=== PATIENT | female | born 1975 | race Caucasian/White ===

== ENCOUNTER 2018-01-19 19:42 | Inpatient (IN) | payer OTHER ==
[~2018-01-19] VITALS: Ht 177.8 cm; Wt 142.7 kg
[~2018-01-19 19:42] MED LIST: AUGMENTIN875 MG PO; BENADRYL25 MG PO; COMPAZINE10 MG PO; FIORICET,ESG1 TABLET PO; NAPROXEN500 MG PO; PEN-VEE K,VEET500 MG PO; PERCOCET 5/31 TABLET PO; VALIUM2 MG PO
[2018-01-19 20:52] LABS: HEMATOCRIT 34.8 % (36.0-46.0); HEMOGLOBIN 11.8 G/DL (11.9-15.5); MCH 31.6 PG (29.0-34.0); MCHC 33.9 G/DL (30.0-36.0); MCV 93.3 FL (83-99); PLATELET COUNT 226 K/uL (156-360); RBC DIS.WIDTH-CV 13.3 % (11.8-14.6); RBC DIS.WIDTH-SD 45.6 % (39-53); RED BLOOD COUNT 3.73 M/uL (3.80-5.20); WHITE BLOOD COUNT 15.2 K/uL (4.1-10.2)
[2018-01-19 21:00] LABS: ALBUMIN 3.3 g/dL (3.2-4.8); CHLORIDE 106 mEq/L (99-109); POTASSIUM 3.5 mEq/L (3.7-5.4); SODIUM 134 mEq/L (136-147)
[2018-01-19 21:03] LABS: GLUCOSE 150 mg/dL (70-99); TOTAL PROTEIN 6.6 g/dL (6.4-8.3)
[2018-01-19 21:04] LABS: TOTAL BILIRUBIN 1.3 mg/dL (0.0-1.0)
[2018-01-19 21:06] LABS: ALKALINE PHOSPHATASE 77 IU/L (3-129); GFR ESTIMATE (CALCULATED) > 59 mL/min/
[2018-01-19 21:07] LABS: UREA NITROGEN (BUN) 17 mg/dL (9-23)
[2018-01-19 21:08] LABS: AST (GOT) 10 IU/L (2-34)
[2018-01-19 21:09] LABS: ALT (GPT) 10 IU/L (3-49)
[2018-01-19] MEDS ORDERED: ONCE DAILY1 EACH PO (23:15)
[2018-01-19] MEDS ORDERED: AMOXICILLIN875 MG PO (23:16)
[2018-01-19] MEDS ORDERED: IRON18 MG PO (23:17)
[2018-01-19] MEDS ORDERED: CINNAMON500 MG PO (23:18)
[2018-01-19] MEDS ORDERED: VITAMIN E600 UNIT PO (23:18)
[2018-01-19] MEDS ORDERED: VITAMIN D2000 UNI1 PO (23:18)
[2018-01-19] MEDS ORDERED: VITAMIN B122500 MCG PO (23:19)
[2018-01-19] MEDS ORDERED: ASCORBIC ACID500 M3 PO (23:19)
[2018-01-19] MEDS ORDERED: CALCIUM 600 +1 EAC1 PO (23:19)
[2018-01-19] MEDS ORDERED: BIOTIN1000 MICRO PO (23:20)
[2018-01-19] MEDS ORDERED: CRANBERRY CONC500 MG PO (23:20)
[2018-01-19] MEDS ORDERED: PLAIN NIACIN500 MG PO (23:21)
[2018-01-20 03:58] VITALS: BP 115/68
[2018-01-20 08:05] VITALS: BP 111/65
[2018-01-20 09:33] LABS: CHLORIDE 107 MEQ/L (99-109); CREATININE 0.9 MG/DL (0.6-1.3); GFR ESTIMATE (CALCULATED) > 59 mL/min/; GLUCOSE 131 mg/dL (70-99); POTASSIUM 3.5 MEQ/L (3.7-5.4); SODIUM 137 MEQ/L (136-147); UREA NITROGEN (BUN) 14 mg/dL (9-23)
[2018-01-20 10:05] LABS: HEMOGLOBIN 11.8 G/DL (11.9-15.5); MCH 31.7 PG (29.0-34.0); MCHC 33.7 G/DL (30.0-36.0); MCV 94.1 FL (83-99); PLATELET COUNT 241 K/uL (156-360); RBC DIS.WIDTH-CV 13.5 % (11.8-14.6); RBC DIS.WIDTH-SD 46.5 % (39-53); RED BLOOD COUNT 3.72 M/uL (3.80-5.20); WHITE BLOOD COUNT 11.3 K/uL (4.1-10.2)
[2018-01-20 12:21] LABS: HEPATITIS B SURFACE ANTIGEN Nonreactive; HEPATITIS C ANTIBODY Nonreactive
[2018-01-20 12:22] LABS: ANTI-HEPATITIS A VIRUS (IGM) Nonreactive
[2018-01-20 12:23] LABS: ANTI-HEPATITIS B CORE (IGM) Nonreactive
[2018-01-20 13:19] VITALS: BP 95/62
[2018-01-20 13:19] LABS: APPEARANCE CLEAR/COLORLESS; CSF TUBE NUMBER TUBE #4; RED CELL COUNT 28 /MM^3 (0-1); WHITE CELL COUNT 0 /MM^3 (0-5)
[2018-01-20 13:54] LABS: CSF PROTEIN 49 mg/dL (15-45)
[2018-01-20 13:59] LABS: GLUCOSE, CSF 65 mg/dL (40-80)
[2018-01-20 14:37] LABS: CSF EOSINOPHILS 0 % (0-25); MONONUCLEAR WBC'S 96 % (50-90); POLYNUCLEAR WBC'S 4 % (0-3)
[2018-01-20 14:38] LABS: APPEARANCE (RECHECK) CLEAR/COLORLESS; CSF TUBE NUMBER (RECHECK) TUBE #1
[2018-01-20 14:39] LABS: RED CELL COUNT (RECHECK) 1225 /MM^3 (0-1)
[2018-01-20 16:30] VITALS: BP 94/58
[2018-01-20 20:01] VITALS: BP 113/68
[2018-01-20 20:59] LABS: APPEARANCE CLOUDY ((CLEAR)); BILIRUBIN NEGATIVE; BLOOD NEGATIVE; COLOR YELLOW ((YELLOW)); GLUCOSE (STRIP) NEGATIVE; KETONES NEGATIVE; LEUKOCYTES NEGATIVE; NITRITE NEGATIVE; PROTEIN (STRIP) 100; SPECIFIC GRAVITY 1.026 (1.000-1.030)
[2018-01-20 21:06] LABS: BACTERIA NONE SEEN /HPF; EPITHELIAL CELLS 2+ /HPF; MUCUS TRACE /LPF; RED BLOOD CELLS 0-5 /HPF (0-5); UCUL ADDED? YES
[2018-01-20 23:34] VITALS: BP 112/62
[2018-01-21 03:38] VITALS: BP 114/63
[2018-01-21 06:50] LABS: HEMATOCRIT 32.4 % (36.0-46.0); HEMOGLOBIN 10.4 G/DL (11.9-15.5); MCH 30.4 PG (29.0-34.0); MCHC 32.1 G/DL (30.0-36.0); MCV 94.7 FL (83-99); PLATELET COUNT 256 K/uL (156-360); RBC DIS.WIDTH-CV 13.5 % (11.8-14.6); RBC DIS.WIDTH-SD 47.4 % (39-53); RED BLOOD COUNT 3.42 M/uL (3.80-5.20); WHITE BLOOD COUNT 9.8 K/uL (4.1-10.2)
[2018-01-21 07:07] LABS: CHLORIDE 109 MEQ/L (99-109); CREATININE 0.9 MG/DL (0.6-1.3); GFR ESTIMATE (CALCULATED) > 59 mL/min/; POTASSIUM 3.8 MEQ/L (3.7-5.4); SODIUM 136 MEQ/L (136-147); UREA NITROGEN (BUN) 16 mg/dL (9-23)
[2018-01-21 07:09] LABS: GLUCOSE 88 mg/dL (70-99)
[2018-01-21 07:55] VITALS: BP 117/67
[2018-01-21 11:15] VITALS: BP 116/67
[2018-01-21 16:14] VITALS: BP 113/69
[2018-01-21 23:58] VITALS: BP 115/67
[2018-01-22 04:00] VITALS: BP 125/78
[2018-01-22 07:25] VITALS: BP 120/74
[2018-01-22 15:55] VITALS: BP 101/61
[2018-01-22 19:29] VITALS: BP 114/71
[2018-01-23 00:13] VITALS: BP 104/60
[2018-01-23 07:26] VITALS: BP 96/54
[2018-01-23 09:29] LABS: LYME DISEASE SEROLOGY SCREEN NEGATIVE (NEGATIVE)
== END 2018-01-23 11:06 | disposition home or self-care (01) | DRG 103 ==
LOC: EME 19:42 → 2EAST 01-20 01:55 → EDOF 01-20 01:55 → ENRESERV 01-20 01:56 → 2EAST 01-20 03:08
PROVIDERS: Emergency Medicine; Hospitalist; Physician Assistant
PROC: 009U3ZX Drainage of Spinal Canal, Percutaneous Approach, Diagnostic (ICD-10-PCS; principal; 2018-01-20)
DX: R51 Headache (principal); E66.9 Obesity, unspecified; Z68.42 Body mass index [BMI] 45.0-49.9, adult; E87.6 Hypokalemia; H53.149 Visual discomfort, unspecified; R50.9 Fever, unspecified; Z83.3 Family history of diabetes mellitus; D72.829 Elevated white blood cell count, unspecified
CPT/HCPCS: 62270; 70553; 76000; 80048; 80053; 80074; 81003; 82945; 84157; 85027; 86618; 87040; 87070; 87086; 87205; 89051; 99281; 99285; J0133; J0696; J1170; J1650; J1885; J2405; J3370; J7030; J7040; J7050